=== PATIENT | male | born 1950 | race Caucasian/White ===

== ENCOUNTER → 2022-07-31 | Outpatient (CLI) | payer MEDICARE ==
[~2022-07-31] MED LIST: ASPI81TA4 PO; ASPI81TA85 PO; ATEN50TA2 PO; AVEL1TAB2 OR; CLOP75TA2 PO; FLUC10TA OR; HYDR-2541 PO; MILK140C PO; ONE A DAY VITAMIN PO; PERC5TAB8 OR; SIMV40TA20 PO; ZEST10TA4 PO; ZOCO20TA PO
== END ==
LOC: M WUC 09:34
PROVIDERS: ATTEND Internal Medicine
DX: R68.3 Clubbing of fingers (principal)

== ENCOUNTER → 2022-08-14 | Outpatient (CLI) | payer MEDICARE | LOC: M PLAIMG 13:21 | PROVIDERS: ATTEND Internal Medicine | DX: R68.3 Clubbing of fingers (principal); R91.8 Other nonspecific abnormal finding of lung field ==

== ENCOUNTER → 2022-09-02 | Outpatient (CLI) | payer MEDICARE | LOC: M PLARAD 08:57 | PROVIDERS: ATTEND Internal Medicine Pulmonary Disease | DX: R91.1 Solitary pulmonary nodule (principal) | CPT/HCPCS: 78815; A9552 ==

== ENCOUNTER → 2022-10-06 | Outpatient (CLI) | payer MEDICARE ==
[~2022-10-06] MED LIST changes: +LIDOCAINE 1% MDV 20ML VIAL As Ordered ONE
[2022-10-06 11:20] VITALS: BP 176/83
== END ==
LOC: M IRPRO 10:10
PROVIDERS: ATTEND Otolaryngology
DX: D44.0 Neoplasm of uncertain behavior of thyroid gland (principal)

== ENCOUNTER → 2023-02-23 | Outpatient (CLI) | payer MEDICARE ==
[~2023-02-23] MED LIST changes: -LIDOCAINE 1% MDV 20ML VIAL As Ordered ONE
== END ==
LOC: M RAD 08:49
PROVIDERS: ATTEND Internal Medicine Pulmonary Disease
DX: R91.1 Solitary pulmonary nodule (principal)

== ENCOUNTER → 2024-04-04 | Outpatient (CLI) | payer MEDICARE | LOC: M PLAIMG 07:59 | PROVIDERS: ATTEND Internal Medicine Pulmonary Disease | DX: R91.1 Solitary pulmonary nodule (principal) ==